=== PATIENT | male | born 1980 | race Caucasian/White ===

== ENCOUNTER 2022-11-17 13:52 | Emergency (ER) | payer MEDICAID ==
[~2022-11-17] VITALS: Ht 182.9 cm; Wt 72.7 kg
[2022-11-17] MEDS ORDERED: QUET200T PO (14:21)
[2022-11-17] MEDS ORDERED: PRAZ2CAP2 PO (14:21)
[2022-11-17] MEDS ORDERED: RISP4TAB73 PO (14:21)
[2022-11-17 16:30] VITALS: BP 124/79
[2022-11-17 17:27] LABS: BASOPHILS % (AUTO) 0.9 % (0.0-2.0); EOSINOPHILS % (AUTO) 2.7 % (1.0-6.0); HEMATOCRIT 43.9 % (41-53); HEMOGLOBIN 15.1 g/dL (13.5-17.5); LYMPHOCYTES # (AUTO) 3.2 K/uL (1.0-4.8); LYMPHOCYTES % (AUTO) 36.9 % (22.0-44.0); MEAN CORPUSCULAR HEMOGLOBIN 30.7 pg (26.0-34.0); MEAN CORPUSCULAR HGB CONC 34.4 G/dL (31.0-37.0); MEAN CORPUSCULAR VOLUME 89 fL (80-100); MONOCYTES # (AUTO) 0.6 K/uL (0.1-1.0); MONOCYTES % (AUTO) 6.8 % (2.0-9.0); NEUTROPHILS # (AUTO) 4.5 K/uL (1.8-7.7); NEUTROPHILS % (AUTO) 52.7 % (40.0-70.0); PLATELET COUNT (AUTO) 173 K/uL (150-450); RED BLOOD CELL COUNT(AUTO) 4.91 MIL/uL (4.50-5.90); RED CELL DISTRIBUTION WIDTH 13.1 % (11.5-14.5)
[2022-11-17 17:31] LABS: ALANINE AMINOTRANSFERASE 57 U/L (12-78); ALKALINE PHOSPHATASE 79 U/L (46-116); CALCIUM, TOTAL 8.9 mg/dL (8.8-10.5); CHLORIDE 98 mmol/L (98-107); CREATININE 0.93 mg/dL (0.60-1.30); GLOMERULAR FILTR. RATE CALC > 60 mL/min (>60); GLUCOSE,RANDOM 64 mg/dL (70-110); POTASSIUM 3.6 mmol/L (3.5-5.1); SODIUM SERUM 136 mmol/L (136-145); UREA NITROGEN, BLOOD 21 mg/dL (7-18)
[2022-11-17 17:49] LABS: ANION GAP 7 mmol/L (8-16); ASPARTATE AMINOTRANSFERASE 66 U/L (15-37); BILIRUBIN,TOTAL 0.8 mg/dL (0.1-1.0); CARBON DIOXIDE 31 mmol/L (22-29); TOTAL PROTEIN, SERUM 7.4 g/dL (6.4-8.2)
[2022-11-17] MEDS ORDERED: LORazepam 1 MG TABLET PO ONE (18:00)
== END 2022-11-17 18:56 | disposition home or self-care (01) ==
LOC: EMS 13:52
DX: F20.9 Schizophrenia, unspecified (principal); F32.A Depression, unspecified; F17.210 Nicotine dependence, cigarettes, uncomplicated
CPT/HCPCS: 99283; 80053; 85025; G0480

== ENCOUNTER 2023-02-18 13:07 | Inpatient (IN) | payer MEDICAID ==
[~2023-02-18] VITALS: Ht 182.9 cm; Wt 81.4 kg
[~2023-02-18 13:07] MED LIST: PRAZ2CAP2 PO; QUET200T PO; RISP4TAB73 PO
[2023-02-18] MEDS ORDERED: HALOPERIDOL 5 MG TABLET PO PRN (13:45)
[2023-02-18 16:53] VITALS: BP 126/80
[2023-02-18] MEDS ORDERED: BACITRACIN 28 GM OINTMENT TP PRN (20:15)
[2023-02-18] MEDS ORDERED: DOCUSATE SODIUM 100 MG CAPSULE PO PRN (20:15)
[2023-02-18] MEDS ORDERED: IBUPROFEN 600 MG TABLET PO PRN (20:15)
[2023-02-18] MEDS ORDERED: ALBUTEROL SULFATE HFA 90 MCG/PUFF 8 GM INHALER IH PRN (20:15)
[2023-02-18] MEDS ORDERED: ONDANSETRON HCL 4 MG TABLET PO PRN (20:15)
[2023-02-18] MEDS ORDERED: LOPERAMIDE HCL 2 MG CAPSULE PO PRN (20:15)
[2023-02-18] MEDS ORDERED: CloNIDine HCL 0.1 MG TABLET PO PRN (20:15)
[2023-02-18] MEDS ORDERED: OMEPRAZOLE 20 MG CAPSULE PO PRN (20:15)
[2023-02-18] MEDS ORDERED: MAGNESIUM HYDROXIDE SUSPENSION 30 ML UDCUP PO PRN (20:15)
[2023-02-18] MEDS ORDERED: ACETAMINOPHEN 325 MG TABLET PO PRN (20:15)
[2023-02-18] MEDS ORDERED: PETROLATUM,WHITE 28 GM JELLY TP PRN (20:15)
[2023-02-18] MEDS ORDERED: MAG HYDROX/AL HYDROX/SIMETH ES 30 ML SUSPENSION UDCUP PO PRN (20:15)
[2023-02-18] MEDS: ZOLPIDEM TARTRATE 10 MG TABLET PO PRN (21:08)
[2023-02-18] MEDS: LORazepam 2 MG TABLET PO PRN (21:08)
[2023-02-18 21:32] VITALS: BP 118/79
[2023-02-19 07:40] LABS: BASOPHILS % (AUTO) 0.9 % (0.0-2.0); EOSINOPHILS % (AUTO) 3.5 % (1.0-6.0); HEMATOCRIT 40.8 % (41-53); HEMOGLOBIN 13.9 g/dL (13.5-17.5); LYMPHOCYTES # (AUTO) 2.5 K/uL (1.0-4.8); LYMPHOCYTES % (AUTO) 41.8 % (22.0-44.0); MEAN CORPUSCULAR HEMOGLOBIN 31.8 pg (26.0-34.0); MEAN CORPUSCULAR HGB CONC 34.1 G/dL (31.0-37.0); MEAN CORPUSCULAR VOLUME 93 fL (80-100); MONOCYTES # (AUTO) 0.5 K/uL (0.1-1.0); MONOCYTES % (AUTO) 7.5 % (2.0-9.0); NEUTROPHILS # (AUTO) 2.8 K/uL (1.8-7.7); NEUTROPHILS % (AUTO) 46.3 % (40.0-70.0); PLATELET COUNT (AUTO) 205 K/uL (150-450); RED BLOOD CELL COUNT(AUTO) 4.37 MIL/uL (4.50-5.90); RED CELL DISTRIBUTION WIDTH 14.1 % (11.5-14.5)
[2023-02-19 08:04] LABS: ALANINE AMINOTRANSFERASE 19 U/L (12-78); ALBUMIN 3.1 g/dL (3.4-5.0); ALKALINE PHOSPHATASE 81 U/L (46-116); ANION GAP 10 mmol/L (8-16); ASPARTATE AMINOTRANSFERASE 11 U/L (15-37); BILIRUBIN,TOTAL 0.3 mg/dL (0.1-1.0); CALCIUM, TOTAL 8.4 mg/dL (8.8-10.5); CARBON DIOXIDE 23 mmol/L (22-29); CHLORIDE 102 mmol/L (98-107); CHOL/HDL RATIO 2.6 (4.2-7.3); CHOLESTEROL 177 mg/dL (131-200); CREATININE 0.84 mg/dL (0.60-1.30); FREE T4 (FREE THYROXINE) 0.87 ng/dL (0.76-1.46); GLOMERULAR FILTR. RATE CALC > 60 mL/min (>60); GLUCOSE,RANDOM 132 mg/dL (70-110); HDL CHOLESTEROL 69 mg/dL (40-60); HEMOGLOBIN A1C 5.2 % (3.8-5.6); LDL CHOL (CALC.) 98 mg/dL (0-130); POTASSIUM 3.8 mmol/L (3.5-5.1); SODIUM SERUM 135 mmol/L (136-145); TOTAL PROTEIN, SERUM 6.6 g/dL (6.4-8.2); TRIGLYCERIDES 52 mg/dL (15-150)
[2023-02-19 08:14] VITALS: BP 119/78
[2023-02-19] MEDS: LORazepam 2 MG TABLET PO PRN ×3 (09:49→20:38)
[2023-02-19] MEDS: ZOLPIDEM TARTRATE 10 MG TABLET PO PRN (20:26)
[2023-02-19 20:46] VITALS: BP 109/66
[2023-02-20 08:21] VITALS: BP 103/65
[2023-02-20] MEDS: LORazepam 2 MG TABLET PO PRN ×2 (10:14→19:04)
[2023-02-20] MEDS: RisperiDONE 3 MG TABLET PO SCH ×2 (16:31→19:04)
[2023-02-21] MEDS: RisperiDONE 3 MG TABLET PO SCH ×2 (08:33→16:12)
[2023-02-21 08:52] VITALS: BP 104/65
[2023-02-21] MEDS: LORazepam 2 MG TABLET PO PRN ×2 (09:01→16:12)
[2023-02-21 20:16] VITALS: BP 109/63
[2023-02-22 08:12] VITALS: BP 109/63
[2023-02-22] MEDS: RisperiDONE 3 MG TABLET PO SCH ×2 (08:31→17:15)
[2023-02-22] MEDS: LORazepam 2 MG TABLET PO PRN (14:51)
[2023-02-22 20:12] VITALS: BP 114/64
[2023-02-23] MEDS: RisperiDONE 3 MG TABLET PO SCH ×2 (08:10→16:17)
[2023-02-23] MEDS: LORazepam 2 MG TABLET PO PRN ×2 (08:17→16:17)
[2023-02-23 09:45] VITALS: BP 100/60
[2023-02-23 20:43] VITALS: BP 108/60
[2023-02-24] MEDS: ZOLPIDEM TARTRATE 10 MG TABLET PO PRN (01:20)
[2023-02-24] MEDS: LORazepam 2 MG TABLET PO PRN ×2 (01:20→09:34)
[2023-02-24] MEDS: RisperiDONE 3 MG TABLET PO SCH (08:16)
[2023-02-24 08:29] VITALS: BP 115/63
[2023-02-24] MEDS ORDERED: RISP3TAB35 PO (14:20)
== END 2023-02-24 15:32 | disposition home or self-care (01) | DRG 750 ==
LOC: B3A 15:52
PROVIDERS: ADMIT Psychiatry & Neurology Psychiatry; ATTEND Psychiatry & Neurology Psychiatry
DX: F20.9 Schizophrenia, unspecified (principal); R45.851 Suicidal ideations; F41.9 Anxiety disorder, unspecified; G47.00 Insomnia, unspecified; K21.9 Gastro-esophageal reflux disease without esophagitis; K59.00 Constipation, unspecified; F19.10 Other psychoactive substance abuse, uncomplicated
CPT/HCPCS: 80053; 80061; 83036; 84436; 84439; 84443; 85025; 86592; G0480

== ENCOUNTER 2023-03-14 16:58 | Inpatient (IN) | payer MEDICAID ==
[~2023-03-14] VITALS: Ht 182.9 cm; Wt 68.0 kg
[~2023-03-14 16:58] MED LIST changes: -PRAZ2CAP2 PO; -QUET200T PO; +RISP3TAB35 PO; -RISP4TAB73 PO
[2023-03-14 17:21] LABS: BASOPHILS % (AUTO) 0.9 % (0.0-2.0); EOSINOPHILS % (AUTO) 2.6 % (1.0-6.0); HEMATOCRIT 44.5 % (41-53); LYMPHOCYTES # (AUTO) 2.7 K/uL (1.0-4.8); LYMPHOCYTES % (AUTO) 36.7 % (22.0-44.0); MEAN CORPUSCULAR HEMOGLOBIN 31.7 pg (26.0-34.0); MEAN CORPUSCULAR HGB CONC 33.8 G/dL (31.0-37.0); MEAN CORPUSCULAR VOLUME 94 fL (80-100); MONOCYTES # (AUTO) 0.5 K/uL (0.1-1.0); MONOCYTES % (AUTO) 6.3 % (2.0-9.0); NEUTROPHILS % (AUTO) 53.5 % (40.0-70.0); PLATELET COUNT (AUTO) 217 K/uL (150-450); RED BLOOD CELL COUNT(AUTO) 4.75 MIL/uL (4.50-5.90); RED CELL DISTRIBUTION WIDTH 14.4 % (11.5-14.5)
[2023-03-14 17:32] LABS: ANION GAP 3 mmol/L (8-16); CALCIUM, TOTAL 8.7 mg/dL (8.8-10.5); CARBON DIOXIDE 32 mmol/L (22-29); CHLORIDE 103 mmol/L (98-107); CREATININE 0.78 mg/dL (0.60-1.30); GLOMERULAR FILTR. RATE CALC > 60 mL/min (>60); GLUCOSE,RANDOM 92 mg/dL (70-110); SODIUM SERUM 138 mmol/L (136-145)
[2023-03-14 17:38] LABS: COVID AG,FIA SOURCE NASOPHARYNGEAL
[2023-03-14 17:38] LABS: ALANINE AMINOTRANSFERASE 21 U/L (12-78); ALBUMIN 3.6 g/dL (3.4-5.0); ALKALINE PHOSPHATASE 104 U/L (46-116); ASPARTATE AMINOTRANSFERASE 12 U/L (15-37); BILIRUBIN,TOTAL 0.2 mg/dL (0.1-1.0); TOTAL PROTEIN, SERUM 7.5 g/dL (6.4-8.2)
[2023-03-14 17:41] LABS: APPEARANCE,URINE CLEAR (CLEAR); BILIRUBIN,URINE NEGATIVE (NEGATIVE); GLUCOSE, URINE (UA) NEGATIVE (NEGATIVE); KETONES,URINE NEGATIVE (NEGATIVE); LEUKOCYTE ESTERASE ,URINE NEGATIVE (NEGATIVE); NITRATE,URINE NEGATIVE (NEGATIVE); OCCULT BLOOD,URINE MODERATE (NEGATIVE); PROTEIN,URINE TRACE mg/dL (NEGATIVE); SPECIFIC GRAVITIY, URINE 1.029 (1.003-1.030)
[2023-03-14 17:47] LABS: AMPHET/METH SCREEN,URINE NEGATIVE (NEGATIVE); BARBITURATE SCREEN, URINE NEGATIVE (NEGATIVE); BENZODIAZEPINES SCREEN,URINE NEGATIVE (NEGATIVE); CANNABINOID SCREEN,URINE NEGATIVE (NEGATIVE); COCAINE SCREEN,URINE NEGATIVE (NEGATIVE); METHADONE SCREEN, URINE NEGATIVE (NEGATIVE); OPIATE SCREEN,URINE NEGATIVE (NEGATIVE); PHENCYCLIDINE SCREEN,URINE NEGATIVE (NEGATIVE)
[2023-03-14 17:51] LABS: BACTERIA,URINE None Seen /HPF (None Seen); CALCIUM OXALATE CRYSTALS,UR Many /LPF (None Seen); WBC,URINE None Seen /HPF (0-5)
[2023-03-14] MEDS ORDERED: HALOPERIDOL 5 MG TABLET PO PRN (19:45)
[2023-03-14] MEDS ORDERED: QUET200T30 PO (19:50)
[2023-03-14] MEDS ORDERED: HYDR50CA6 PO (19:50)
[2023-03-14] MEDS: ZOLPIDEM TARTRATE 10 MG TABLET PO PRN (22:13)
[2023-03-14 23:14] VITALS: BP 126/85
[2023-03-15] MEDS ORDERED: DOCUSATE SODIUM 100 MG CAPSULE PO PRN (06:00)
[2023-03-15] MEDS ORDERED: ALBUTEROL SULFATE HFA 90 MCG/PUFF 8 GM INHALER IH PRN (06:00)
[2023-03-15] MEDS ORDERED: LOPERAMIDE HCL 2 MG CAPSULE PO PRN (06:00)
[2023-03-15] MEDS ORDERED: CloNIDine HCL 0.1 MG TABLET PO PRN (06:00)
[2023-03-15] MEDS ORDERED: MAGNESIUM HYDROXIDE SUSPENSION 30 ML UDCUP PO PRN (06:00)
[2023-03-15] MEDS ORDERED: OMEPRAZOLE 20 MG CAPSULE PO PRN (06:00)
[2023-03-15] MEDS ORDERED: ACETAMINOPHEN 325 MG TABLET PO PRN (06:00)
[2023-03-15] MEDS ORDERED: BACITRACIN 28 GM OINTMENT TP PRN (06:00)
[2023-03-15] MEDS ORDERED: IBUPROFEN 600 MG TABLET PO PRN (06:00)
[2023-03-15] MEDS ORDERED: PETROLATUM,WHITE 28 GM JELLY TP PRN (06:00)
[2023-03-15] MEDS ORDERED: MAG HYDROX/AL HYDROX/SIMETH ES 30 ML SUSPENSION UDCUP PO PRN (06:00)
[2023-03-15] MEDS ORDERED: ONDANSETRON HCL 4 MG TABLET PO PRN (06:00)
[2023-03-15] MEDS: LORazepam 2 MG TABLET PO PRN (09:12)
[2023-03-15 16:34] VITALS: BP 137/88
[2023-03-15] MEDS: RisperiDONE 3 MG TABLET PO SCH (16:56)
[2023-03-15 22:44] VITALS: BP 137/88
[2023-03-16] MEDS: RisperiDONE 3 MG TABLET PO SCH ×2 (08:06→17:20)
[2023-03-16 09:03] VITALS: BP 109/68
[2023-03-16] MEDS: LORazepam 2 MG TABLET PO PRN (14:52)
[2023-03-16] MEDS: MUPIROCIN CALCIUM 2% 22 GM OINTMENT NASAL SCH (17:20)
[2023-03-16 20:22] VITALS: BP 121/68
[2023-03-17] MEDS: RisperiDONE 3 MG TABLET PO SCH ×2 (08:02→17:13)
[2023-03-17] MEDS: MUPIROCIN CALCIUM 2% 22 GM OINTMENT NASAL SCH ×2 (08:03→17:13)
[2023-03-17 08:24] VITALS: BP 113/62
[2023-03-17] MEDS: LORazepam 2 MG TABLET PO PRN (14:44)
[2023-03-17 20:06] VITALS: BP 107/62
[2023-03-18] MEDS: LORazepam 2 MG TABLET PO PRN ×4 (04:37→20:43)
[2023-03-18] MEDS: RisperiDONE 3 MG TABLET PO SCH ×2 (08:20→16:21)
[2023-03-18] MEDS: MUPIROCIN CALCIUM 2% 22 GM OINTMENT NASAL SCH ×2 (08:20→16:21)
[2023-03-18 08:58] VITALS: BP 125/68
[2023-03-18] MEDS: BuPROPion HCL 150 MG SR TABLET PO SCH (16:55)
[2023-03-18] MEDS: ZOLPIDEM TARTRATE 10 MG TABLET PO PRN (20:43)
[2023-03-19 03:54] VITALS: BP 112/78
[2023-03-19] MEDS: BuPROPion HCL 150 MG SR TABLET PO SCH (08:18)
[2023-03-19] MEDS: MUPIROCIN CALCIUM 2% 22 GM OINTMENT NASAL SCH ×2 (08:18→16:42)
[2023-03-19] MEDS: RisperiDONE 3 MG TABLET PO SCH ×2 (08:18→16:42)
[2023-03-19 10:13] VITALS: BP 142/75
[2023-03-19] MEDS: LORazepam 2 MG TABLET PO PRN ×3 (10:57→21:24)
[2023-03-19] MEDS: ZOLPIDEM TARTRATE 10 MG TABLET PO PRN (21:24)
[2023-03-19 23:01] VITALS: BP 122/79
[2023-03-20] MEDS: BuPROPion HCL 150 MG SR TABLET PO SCH (08:01)
[2023-03-20] MEDS: RisperiDONE 3 MG TABLET PO SCH (08:02)
[2023-03-20] MEDS: MUPIROCIN CALCIUM 2% 22 GM OINTMENT NASAL SCH (10:01)
[2023-03-20 10:42] VITALS: BP 121/74
[2023-03-20] MEDS ORDERED: BUPR-72 PO (11:17)
== END 2023-03-20 13:31 | disposition home or self-care (01) | DRG 750 ==
LOC: EMS 16:58 → B3A 19:55
PROVIDERS: ADMIT Psychiatry & Neurology Psychiatry; ATTEND Psychiatry & Neurology Psychiatry
DX: F25.1 Schizoaffective disorder, depressive type (principal); R45.851 Suicidal ideations; F10.10 Alcohol abuse, uncomplicated; Z20.822 Contact with and (suspected) exposure to COVID-19; F41.9 Anxiety disorder, unspecified; G47.00 Insomnia, unspecified; K21.9 Gastro-esophageal reflux disease without esophagitis; K59.00 Constipation, unspecified; F19.10 Other psychoactive substance abuse, uncomplicated; Z79.899 Other long term (current) drug therapy; Z87.891 Personal history of nicotine dependence
CPT/HCPCS: 80053; 80307; 81001; 85025; 87081; 99285; G0480